=== PATIENT | female | born 1945 | race Two or more races ===

== ENCOUNTER 2021-08-03 11:17 | Emergency (ER) | payer OTHER ==
[~2021-08-03] VITALS: Ht 154.9 cm; Wt 77.1 kg
[2021-08-03] MEDS ORDERED: ATACAND4 MG PO (11:40)
[2021-08-03] MEDS ORDERED: REMERON15 MG PO (11:41)
[2021-08-03] MEDS ORDERED: [UNRECOGNIZED DRUG - OTHER] (11:42)
== END 2021-08-03 18:51 | disposition home or self-care (01) ==
LOC: ER 11:17
DX: R55 Syncope and collapse (principal)